=== PATIENT | female | born 1980 | race Caucasian/White ===

== ENCOUNTER 2019-05-11 09:12 | Emergency (ER) | payer MEDICAID ==
[~2019-05-11] VITALS: Ht 149.9 cm; Wt 62.6 kg
[2019-05-11 09:18] VITALS: BP_SYST 117
--- NOTE | 2019-05-11 09:18 | NUR ---
Patient to ER bed 04 to gown for evaluation. Side rails up.
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
--- NOTE | 2019-05-11 09:28 | NUR ---
ER Dr. Olmstead at bedside examining patient.
[2019-05-11] MEDS ORDERED: LORazepam 1 MG TABLET PO ONE (09:30)
--- NOTE | 2019-05-11 10:21 | NUR ---
Vikas lawrence in [facility] - 05/11/19 at 1035 by [email or web address] VIANEY Olmstead at bedside examining patient.
[2019-05-11 11:09] VITALS: BP_SYST 117
--- NOTE | 2019-05-11 11:11 | NUR ---
Patient given written and verbal discharge instructions and verbalizes understanding. ER MD discussed with patient the results and treatment provided. Patient in stable condition. ID arm band removed. Rx of Ativan given. Patient educated on pain management and to follow up with PMD. Pain Scale 0/10. Opportunity for questions provided and answered. Medication side effect fact sheet provided.
== END 2019-05-11 11:09 | disposition home or self-care (01) ==
LOC: SED 09:12
DX: F45.8 Other somatoform disorders (principal)
CPT/HCPCS: 99283